=== PATIENT | female | born 1980 | race Caucasian/White ===

== ENCOUNTER 2022-12-11 00:58 | Day surgery (SDC) | payer OTHER, SELFPAY ==
[2022-11-30 12:18] VITALS: BMI 49.6
[2022-12-11 12:44] VITALS: BP 162/95; PULSE 64; RESP 20; TEMP 36.3; O2SAT 99; BMI 48.2
[2022-12-11] MEDS: LACTATED RINGERS 1,000 ML 150 ML IV CONT (12:53)
[2022-12-11 12:55] VITALS: BP 128/81; PULSE 62; RESP 23; O2SAT 99
--- NOTE | 2022-12-11 12:56 | SUR.PREOP ---
Urine not obtained as patient has history of tubal ligation.
--- NOTE | 2022-12-11 13:07 | WPDANESEPPF ---
Anes - Initial Pre Proc Eval Procedure: Operation Date: 12/11/22 14:00 Proposed Procedures p Colonoscopy - Yeison Weldon MD Date/Time: 12/11/22 13:07 Surgeon: Yeison Weldon MD Pre Op Diagnosis: melena, rectal hemorrhage, hemorrhoids Patient Data Age: 42 Gender: F Height: 1.57 m Weight: 119.7 kg Last Vital Signs Temp 36.3 C L 12/11/22 12:44 Pulse 64 12/11/22 12:44 Resp 20 12/11/22 12:44 BP 162/95 H 12/11/22 12:44 Pulse Ox 99 12/11/22 12:44 O2 Del Method Room Air 12/11/22 12:44 Allergies Allergy/AdvReac Type Severity Reaction Status Date / Time No Known Allergies Allergy Mild Verified 12/11/22 12:43 Home Medications Medication Instructions Recorded Confirmed Type hydrocortisone 2.5 % topical cream 1 applic RECTAL BID PRN 11/24/22 12/11/22 Rx with perineal applicator hemorrhoids #30 grams Patient hx anesthesia problems: none Family hx anesthesia problems: none Results Review: All pre-operative results and documents have been reviewed as part of the pre-operative evaluation. [facility] Past Medical History Medical History (Updated 12/11/22 @ 13:07 by Eb Overton MD) Morbid obesity Surgical History Surgical History (Updated 12/11/22 @ 13:08 by Eb Overton MD) History of appendectomy History of cholecystectomy Social History Social History Smoking status: Never smoker Spiritual care concerns: No Anes - Eval Final PreProcedure Day of Procedure 12/11/22 13:07 Patient weight: morbidly obese Heart: regular rate and rhythm Lungs: clear to auscultation Airway: Mallampati scale class II Neurological: alert and oriented Last oral intake: >/= 8 hours ASA classification: III Emergent: no Anesthetic plan: proceed Anesthesia type and monitoring: general GIVS and standard monitoring Results Review: All pre-operative results and documents have been reviewed as part of the pre-operative evaluation. Informed Consent: The patient's anesthetic plan and its attendant risks and benefits were discussed with the patient/family/POA. Questions were solicited and answers provided to the satisfaction of the patient/family/POA.
--- NOTE | 2022-12-11 13:16 | WPDHPUPDATE1 ---
History and Physical Update Update Date/Time: 12/11/22 13:16 History and Physical has been reviewed, including an updated exam of the patient. There are NO changes in the patient's condition. Risks, benefits, and alternatives have been discussed and questions answered. Patient agrees to proceed with procedure.
[2022-12-11 13:35] VITALS: BP 96/55; PULSE 63; RESP 23; O2SAT 96
[2022-12-11 13:45] VITALS: BP 113/75; PULSE 60; RESP 16; O2SAT 97
== END 2022-12-11 14:00 | disposition home or self-care (01) ==
PROVIDERS: PCP Nurse Practitioner Family; Visit Provider Internal Medicine Gastroenterology
PROC: 0DJD8ZZ Inspection of Lower Intestinal Tract, Via Natural or Artificial Opening Endoscopic (ICD-10-PCS; CPT 45378; principal; 2022-12-11 14:00)
DX: K92.1 Melena (principal); E66.9 Obesity, unspecified; K64.8 Other hemorrhoids
CPT/HCPCS: 45378; J2704; J7120